=== PATIENT | female | born 1990 | race Hispanic/Latino ===

== ENCOUNTER 2016-10-12 17:14 | Emergency (ER) | payer OTHER ==
[2016-10-12 17:44] VITALS: BP 126/87; PULSE 84; RESP 18; TEMP 98; O2SAT 99
[2016-10-12 17:59] VITALS: BMI 22.3
[2016-10-12] MEDS ORDERED: Tmp-Smz 800 mg-160 mg DS Tab PO STA (17:59)
--- NOTE | 2016-10-12 17:59 | ED PDOC ---
HPI: Female Pain Time Seen by Provider: 10/12/16 17:49 Chief Complaint (Nursing): Female Genitourinary Chief Complaint (Provider): Hematuria History Per: Patient History/Exam Limitations: no limitations Onset/Duration Of Symptoms: Hrs (this morning), Worse Since (onset) Current Symptoms Are (Timing): Still Present Associated Symptoms: denies: Fever, Nausea, Vomiting Additional Complaint(s): Rina Randall is a 26 year old female, with no pertinent past medical history, who presents to the ED on 10/12/16 for the evaluation of hematuria that she had begun to experience as of this morning; reportedly worse since onset. Some associated burning dysuria, abdominal pain and urinary frequency also reported, though she denies fever, back/flank pain, nausea or vomiting. PMD: none Past Medical History Reviewed: Historical Data, Nursing Documentation, Vital Signs Vital Signs: Last Vital Signs Temp 98 F 10/12/16 17:28 Pulse 84 10/12/16 17:28 Resp 18 10/12/16 17:28 BP 126/87 10/12/16 17:28 Pulse Ox 99 10/12/16 17:28 - Medical History PMH: No Chronic Diseases - Surgical History Surgical History: No Surg Hx - Family History Family History: States: Unknown Family Hx - Home Medications Home Medications: Ambulatory Orders Medication Instructions Recorded Phenazopyridine HCl [Pyridium] 100 mg PO TID #6 tab 10/12/16 Sulfamethoxazole/Trimethoprim 1 tab PO BID 7 Days 10/12/16 [Bactrim DS 800 mg-160 mg] - Allergies Allergies/Adverse Reactions: Allergies Allergy/AdvReac Type Severity Reaction Status Date / Time No Known Allergies Allergy Verified 10/12/16 17:58 Review of Systems Constitutional: Negative for: Fever Gastrointestinal: Positive for: Abdominal Pain. Negative for: Nausea, Vomiting Genitourinary Female: Positive for: Dysuria (burning), Frequency, Hematuria Musculoskeletal: Negative for: Back Pain Physical Exam - Reviewed Nursing Documentation Reviewed: Yes Vital Signs Reviewed: Yes - Physical Exam Appears: Positive for: Non-toxic, No Acute Distress Gastrointestinal/Abdominal: Positive for: Normal Exam, Soft. Negative for: Tenderness Back: Positive for: Normal Inspection. Negative for: L CVA Tenderness, R CVA Tenderness Neurologic/Psych: Positive for: Alert, Oriented - ECG O2 Sat by Pulse Oximetry: 99 (RA) Pulse Ox Interpretation: Normal Medical Decision Making Medical Decision Makin:49 Initial Impression: UTI Initial Plan: * Upreg * Udip * Bactrim 1 tab PO * Pyridium 100mg PO * Reevaluation Dip (+) blood and leuks, (-) nites. Urine culture sent Signs and symptoms of pyelonephritis discussed at length. Advised to return to ED if at anytime condition worsens Scribe Attestation: Documented by Sharon York, acting as a scribe for Christina Holley PA-C. Provider Scribe Attestation: All medical record entries made by the Scribe were at my direction and personally dictated by me. I have reviewed the chart and agree that the record accurately reflects my personal performance of the history, physical exam, medical decision making, and the department course for this patient. I have also personally directed, reviewed, and agree with the discharge instructions and disposition. Disposition - Clinical Impression Clinical Impression: Urinary tract infection, Cystitis - Patient ED Disposition Is Patient to be Admitted: No - Disposition Disposition: Routine/Home Disposition Time: 19:01 Condition: STABLE Prescriptions: Sulfamethoxazole/Trimethoprim [Bactrim DS 800 mg-160 mg] 1 tab PO BID 7 Days Phenazopyridine HCl [Pyridium] 100 mg PO TID #6 tab Instructions: Urinary Tract Infection in Women (ED) - POA Present On Arrival: None
[2016-10-12] MEDS ORDERED: Tmp-Smz 800 mg-160 mg DS Tab ONE (18:31)
== END 2016-10-12 19:26 | disposition home or self-care (01) ==
LOC: H.ER 17:14
DX: N30.90 Cystitis, unspecified without hematuria (principal); N39.0 Urinary tract infection, site not specified

== ENCOUNTER 2016-11-07 04:32 | Observation (INO) | payer OTHER ==
[2016-11-07 04:33] VITALS: BMI 22.3
[2016-11-07] MEDS ORDERED: Sodium Chloride 0.9% 1,000 ML IV STA (05:18)
[2016-11-07 05:47] LABS: RBC URINE 4 /hpf (0-3); URINE BILIRUBIN NEGATIVE (NEGATIVE); URINE BLOOD NEGATIVE (NEGATIVE); URINE COLOR YELLOW (YELLOW); URINE GLUCOSE (UA) NEG (Normal); URINE KETONE NEGATIVE (NEGATIVE); URINE LEUKOCYTE ESTERASE NEG Leu/uL (Negative); URINE PROTEIN NEGATIVE (NEGATIVE); URINE UROBILINOGEN 0.2-1.0 mg/dL (0.2-1.0); WBC URINE 1 /hpf (0-5)
[2016-11-07 06:06] LABS: BASO # 0.1 K/uL (0.0-0.2); BASO % 1.4 % (0.0-2.0); EOS # 0.4 K/uL (0.0-0.7); EOS % 6.1 % (0.0-4.0); HEMATOCRIT 38.9 % (34.0-47.0); LYMPH # 2.2 K/uL (1.0-4.3); LYMPH % 31.5 % (20.0-40.0); MEAN CELL VOLUME 89.7 fl (81.0-99.0); MEAN CORPUSCULAR HEMOGLOBIN 30.5 pg (27.0-31.0); MEAN PLATELET VOLUME 8.6 fl (7.2-11.7); MONO # 0.4 K/uL (0.0-0.8); MONO % 6.4 % (0.0-10.0); NEUT # 3.8 K/uL (1.8-7.0); NEUT % 54.6 % (50.0-75.0); NRBC % 0.1 % (0.0-0.0); RED CELL DISTRIBUTION WIDTH 12.5 % (11.5-14.5)
[2016-11-07 06:12] LABS: ALB/GLOB RATIO 1.4 (1.0-2.1); ALKALINE PHOSPHATASE 67 U/L (38-126); ALT/SGPT 23 U/L (9-52); AST/SGOT 30 U/L (14-36); BILIRUBIN,TOTAL 0.4 mg/dl (0.2-1.3); BLOOD UREA NITROGEN 12 mg/dl (7-17); CALCIUM 9.2 mg/dL (8.4-10.2); CARBON DIOXIDE 25 mmol/L (22-30); CHLORIDE 104 mmol/L (98-107); GFR AFRICAN-AMERICAN > 60; GLUCOSE,RANDOM 99 mg/dL (65-105); POTASSIUM 3.9 MMOL/L (3.6-5.0); SODIUM 140 mmol/l (132-148); TOTAL PROTEIN 7.6 G/DL (6.3-8.2)
--- NOTE | 2016-11-07 06:41 | ED PDOC ---
HPI: Abdomen Time Seen by Provider: 11/07/16 05:17 Chief Complaint (Nursing): Back Pain Past Medical History Vital Signs: Last Vital Signs Temp 98.4 F 11/07/16 04:47 Pulse 76 11/07/16 04:47 Resp 18 11/07/16 04:47 BP 122/67 11/07/16 04:47 Pulse Ox 99 11/07/16 04:47 - Family History Family History: States: Unknown Family Hx - Home Medications Home Medications: Ambulatory Orders Medication Instructions Recorded Phenazopyridine HCl [Pyridium] 100 mg PO TID #6 tab 10/12/16 Sulfamethoxazole/Trimethoprim 1 tab PO BID 7 Days 10/12/16 [Bactrim DS 800 mg-160 mg] - Allergies Allergies/Adverse Reactions: Allergies Allergy/AdvReac Type Severity Reaction Status Date / Time No Known Allergies Allergy Verified 11/07/16 04:47 - Laboratory Results Result Diagrams: 11/07/16 05:50 11/07/16 05:50 - ECG O2 Sat by Pulse Oximetry: 99
--- NOTE | 2016-11-07 06:41 | ED PDOC ---
HPI: Abdomen Chief Complaint (Provider): Back pain History Per: Patient History/Exam Limitations: no limitations Onset/Duration Of Symptoms: Hrs Current Symptoms Are (Timing): Still Present Pain Scale Rating Of: 6 Quality Of Discomfort: Sharp Associated Symptoms: denies: Nausea, Vomiting <Markus Coles - Last Filed: 11/07/16 06:26> <Sylvester Horner Jr. - Last Filed: 11/07/16 13:55> Time Seen by Provider: 11/07/16 05:17 Chief Complaint (Nursing): Back Pain Additional Complaint(s): Rina Randall is a 26 year old female with no past medical history who presents to the ED wit a chief complaint of abdominal pain along with diarrhea onset x4days. Patient reports right flank pain that radiated to the abdomen with associated diarrhea initially that's been resolved. Patient rates her pain 6 out of 10 and states its a sharp feeling; she was seen 2 weeks ago and was diagnosed with UTI. (Markus Coles) Past Medical History Reviewed: Historical Data, Nursing Documentation, Vital Signs - Medical History PMH: No Chronic Diseases - Surgical History Surgical History: No Surg Hx - Family History Family History: States: Unknown Family Hx <Markus Coles - Last Filed: 11/07/16 06:26> <Sylvester Horner Jr. - Last Filed: 11/07/16 13:55> Vital Signs: Last Vital Signs Temp 98.1 F 11/07/16 08:00 Pulse 74 11/07/16 08:00 Resp 16 11/07/16 08:00 BP 106/42 L 11/07/16 08:00 Pulse Ox 100 11/07/16 08:00 - Home Medications Home Medications: Ambulatory Orders Medication Instructions Recorded Phenazopyridine HCl [Pyridium] 100 mg PO TID #6 tab 10/12/16 Sulfamethoxazole/Trimethoprim 1 tab PO BID 7 Days 10/12/16 [Bactrim DS 800 mg-160 mg] - Allergies Allergies/Adverse Reactions: Allergies Allergy/AdvReac Type Severity Reaction Status Date / Time No Known Allergies Allergy Verified 11/07/16 04:47 Review of Systems ROS Statement: Except As Marked, All Systems Reviewed And Found Negative Gastrointestinal: Positive for: Abdominal Pain, Diarrhea. Negative for: Nausea , Vomiting <Markus Coles - Last Filed: 11/07/16 06:26> Physical Exam - Reviewed Nursing Documentation Reviewed: Yes Vital Signs Reviewed: Yes - Physical Exam Appears: Positive for: Well, Non-toxic, No Acute Distress Head Exam: Positive for: ATRAUMATIC, NORMAL INSPECTION, NORMOCEPHALIC Skin: Positive for: Normal Color, Warm, Dry Eye Exam: Positive for: Normal appearance, EOMI, PERRL ENT: Positive for: Normal ENT Inspection Neck: Positive for: Normal, Painless ROM, Supple Cardiovascular/Chest: Positive for: Regular Rate, Rhythm. Negative for: Murmur , Tachycardia Respiratory: Positive for: Normal Breath Sounds. Negative for: Wheezing, Respiratory Distress Gastrointestinal/Abdominal: Positive for: Normal Exam, Soft. Negative for: Tenderness Pelvic Exam: Positive for: External Exam Normal Back: Positive for: Normal Inspection Rectal: Positive for: Deferred Extremity: Positive for: Normal ROM Lymphatic: Positive for: Deferred Neurologic/Psych: Positive for: Alert, Oriented <KennedytedMarkus Tejas - Last Filed: 11/07/16 06:26> - Laboratory Results Result Diagrams: 11/07/16 05:50 11/07/16 05:50 - ECG O2 Sat by Pulse Oximetry: 99 (RA) Pulse Ox Interpretation: Normal <JoseattilaRenettaMarkus Lazaro - Last Filed: 11/07/16 06:26> - Laboratory Results Result Diagrams: 11/07/16 05:50 11/07/16 05:50 <Sylvester Horner Jr. - Last Filed: 11/07/16 13:55> Medical Decision Making <SharynRenettaMarkusstella Lazaro - Last Filed: 11/07/16 06:26> <Sylvester Horner Jr. - Last Filed: 11/07/16 13:55> Medical Decision Makin: Initial Impression: Abdominal flank pain in setting of UTI Initial Plan: * ABD Pelvis * CMP * Urine * ED Urine Dipstick * CBC * Sodium chloride 1000 ml * Ketorolac 10mg * Ondansetron 4mg * Heplock insertion * Urinalysis * Re-Eval Patient declines analgesia. Patient signed out to Dr. Horner at 0700: Scribe~Attestation: Documented by Alicia Palomares acting as a~scribe~for Markus Coles MD. ~ Provider~SameeraAttestation: All medical record entries made by the~Sameerawere at my direction and personally dictated by me. I have reviewed the chart and agree that the record accurately reflects my personal performance of the history, physical exam, medical decision making, and the department course for this patient. I have also personally directed, reviewed, and agree with the discharge instructions and disposition. 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 CT shows significant constipation. No RLQ tenderness on exam. Will d/c home with Rx for magnesium citrate. I instructed pt that if her symptoms do not improve, to return to ER. (Sylvester Horner Jr.) ED OBSERVATION <Markus Coles - Last Filed: 11/07/16 06:26> Date of observation admission: 11/07/16 Time of observation admission: 10:44 <Sylvester Horner Jr. - Last Filed: 11/07/16 13:55> - Observation admission statement Patient is being placed in observation because:: Patient is still symptomatic. Will need further workup and testing. (Sylvester Horner Jr.) - Goals of Observation Goals of observation are:: Improvement of symptoms. (Sylvester Horner Jr.) Disposition <Markus Coles - Last Filed: 11/07/16 06:26> - Patient ED Disposition Is Patient to be Admitted: No - Disposition Disposition: Routine/Home Disposition Time: 13:55 - POA Present On Arrival: None <Sylvester Horner Jr. - Last Filed: 11/07/16 13:55> - Clinical Impression Clinical Impression: Constipation - Disposition Condition: FAIR
[2016-11-07 08:01] VITALS: PULSE 74; RESP 16; TEMP 98.1; O2SAT 100
--- NOTE | 2016-11-07 10:33 | CT ---
PROCEDURE: CT scan abdomen pelvis dated 11/07/2016. HISTORY: renal colic COMPARISON: None. TECHNIQUE: Contiguous axial images of the abdomen and pelvis. Oral contrast was administered. No IV contrast given. Coronal and Sagittal reformats generated. Radiation dose: Total exam DLP = 434.76 mGy-cm. This CT exam was performed using one or more of the following dose reduction techniques: Automated exposure control, adjustment of the mA and/or kV according to patient size, and/or use of iterative reconstruction technique. FINDINGS: LOWER THORAX: No focal consolidation seen lung bases. Tiny linear focus of atelectasis or scarring left CP angle region. No basilar pneumothorax. LIVER: Liver exhibits normal size measuring approximately 15 cm in CC dimension. No obvious hepatic mass or collection seen on this noncontrast study. GALLBLADDER AND BILE DUCTS: Gallbladder is appears incompletely distended. No evidence of intraluminal gallbladder calculi. PANCREAS: The visualized portions of the pancreas appear grossly unremarkable so far as can be seen. Note that evaluation slightly limited due to a relative paucity of intra peritoneal as well as retroperitoneal fat and lack of oral and intravenous contrast material. SPLEEN: Spleen exhibits normal size and attenuation. No splenic mass, collection or calcification ADRENALS: No adrenal lesions. KIDNEYS AND URETERS: Kidneys exhibit symmetric nephrograms. No evidence of nephrolithiasis or hydronephrosis. BLADDER: Urinary bladder is incompletely distended which may account for slight thick-walled appearance. Possibility of a cystitis not excluded. REPRODUCTIVE: Uterus and adnexal structures unremarkable. APPENDIX: The appendix is not seen with any certainty. No definitive inflammatory changes seen within the right lower quadrant of the abdomen however clinical correlation with physical exam and laboratory values recommended. BOWEL: Evaluation of the bowel is somewhat limited due to the lack of oral contrast material. The stomach is incompletely distended which presumably accounts for thick-walled appearance. Gastritis not excluded. Visualized loops of small bowel exhibit normal contour and caliber. No evidence of acute mechanical small bowel obstruction. Large amount of stool seen throughout the colon consistent with constipation. . PERITONEUM: Unremarkable. No fluid collection. No free air. LYMPH NODES: Unremarkable. No enlarged lymph nodes. VASCULATURE: Unremarkable. No aortic aneurysm. BONES: Osseous structures appear grossly intact. OTHER FINDINGS: None. IMPRESSION: Findings consistent with marked constipation. Appendix is not seen with any certainty on this exam on however no obvious inflammatory changes right lower quadrant of the abdomen. Clinical correlation with physical exam and laboratory values suggested the possibility of an acute appendicitis cannot be ruled out based on this study. No evidence of nephrolithiasis or hydronephrosis.
--- NOTE | 2016-11-07 13:32 | US ---
HISTORY: Right side pelvic pain; r/o ovarian cyst or torsion. COMPARISON: Comparison made with CT scan abdomen pelvis obtained earlier same day. TECHNIQUE: FINDINGS: UTERUS: Uterus is anteverted measuring approximately 8.0 x 3.3 x 4.7 cm. Cm. Normal in size and appearance. No uterine fibroids are identified. ENDOMETRIUM: Measures 1.0 0 cm mm in diameter. Unremarkable. CERVIX: Small nabothian cysts are present. RIGHT OVARY: Right ovary measures 5.1 x 2.0 x 4.0 cm. No evidence of solid or cystic mass. Right ovary exhibits arterial flow. LEFT OVARY: Left ovary measures 3.7 x 2.0 x 3.4 cm. No obvious solid or cystic mass. Left ovary exhibits arterial flow. FREE FLUID: Small amount of free fluid is present within the cul de sac. OTHER FINDINGS: None. IMPRESSION: Small amount of free fluid present within the cul de sac. No evidence of ovarian torsion. Small cervical nabothian cyst.
[2016-11-07 14:31] VITALS: BP 126/78
== END 2016-11-07 13:51 | disposition home or self-care (01) ==
LOC: H.ER 04:32 → H.EROBSV 10:43
PROVIDERS: ADMIT Emergency Medicine; ATTEND Emergency Medicine
DX: K59.00 Constipation, unspecified (principal); N39.0 Urinary tract infection, site not specified

== ENCOUNTER 2017-01-09 18:43 | Emergency (ER) | payer SELFPAY ==
[2017-01-09 18:43] VITALS: BMI 22.3
--- NOTE | 2017-01-09 20:05 | ED PDOC ---
HPI: Neurologic - General Time Seen by Provider: 01/09/17 19:09 Chief Complaint (Nursing): Headache Source: patient Exam Limitations: no limitations - History of Present Illness Timing/Duration: 24 hours Severity: mild Associated Symptoms: numbness in legs/feet, tingling in legs/feet. denies: denies symptoms, confusion, fatigue, fever/chills, insomnia, loss of consciousness, muscle spasms, nausea/vomiting, paresthesia, ringing in ears, seizures, sleepy, slurred speech, trouble walking, vision changes, weakness Allergies/Adverse Reactions: Allergies No Known Allergies Allergy (Verified 01/09/17 18:47) Home Medications: Ambulatory Orders Phenazopyridine HCl [Pyridium] 100 mg PO TID #6 tab 10/12/16 Sulfamethoxazole/Trimethoprim [Bactrim DS 800 mg-160 mg] 1 tab PO BID 7 Days Magnesium Citrate [Citrate of Mag] 300 ml PO ONCE #1 bottle 11/07/16 Additional Complaint(s): Pt arrives to ER for headache and left chest pain with left arm pain. Headache is mild started 2 days ago after she hit her head when she fell on the boat 2 days ago. She denies syncope or LOC. Her headache did not bother her so she did skydiving yesterday. After skidiving she developed left chest pain of burning character that radiated to left arm. She had left arm tingling and numbness since yesterday as well. Tingling is from the shoulder to her 2 fingers. She had left lower facial heaviness. She noticed left leg tingling in the foot as well. NO weakness. NO gait problems. NO slurred speech. Past Medical History Reviewed: Historical Data, Nursing Documentation, Vital Signs Vital Signs: Last Vital Signs Temp 98.6 F 01/09/17 18:47 Pulse 80 01/09/17 18:47 Resp 20 01/09/17 18:47 BP 137/97 H 01/09/17 18:47 Pulse Ox 98 01/09/17 18:47 - Medical History PMH: No Chronic Diseases - Surgical History Surgical History: No Surg Hx - Family History Family History: States: Unknown Family Hx - Social History Current smoker - smoking cessation education provided: No Ex-Smoker (has not smoked in the last 12 months): No Alcohol: None Drugs: Denies - Home Medications Home Medications: Ambulatory Orders Medication Instructions Recorded Phenazopyridine HCl [Pyridium] 100 mg PO TID #6 tab 10/12/16 Sulfamethoxazole/Trimethoprim 1 tab PO BID 7 Days 10/12/16 [Bactrim DS 800 mg-160 mg] Magnesium Citrate [Citrate of Mag] 300 ml PO ONCE #1 bottle 11/07/16 - Allergies Allergies/Adverse Reactions: Allergies Allergy/AdvReac Type Severity Reaction Status Date / Time No Known Allergies Allergy Verified 01/09/17 18:47 Review of Systems ROS Statement: Except As Marked, All Systems Reviewed And Found Negative Constitutional: Negative for: Fever Cardiovascular: Positive for: Chest Pain Musculoskeletal: Positive for: Arm Pain. Negative for: Neck Pain Neurological: Positive for: Numbness Physical Exam - Reviewed Nursing Documentation Reviewed: Yes Vital Signs Reviewed: Yes - Physical Exam Appears: Positive for: Non-toxic, No Acute Distress Head Exam: Positive for: ATRAUMATIC Skin: Positive for: Normal Color, Warm, Dry Eye Exam: Positive for: EOMI, PERRL Neck: Positive for: Painless ROM, Supple Cardiovascular/Chest: Positive for: Regular Rate, Rhythm. Negative for: Tachycardia Respiratory: Positive for: Normal Breath Sounds. Negative for: Rales, Rhonchi, Wheezing Gastrointestinal/Abdominal: Positive for: Soft. Negative for: Tenderness Extremity: Positive for: Normal ROM Neurologic/Psych: Positive for: Alert, senior training specialist II-XII (intact), Oriented, Gait ( steady). Negative for: Motor/Sensory Deficits, Aphasia, Facial Droop - Laboratory Results Result Diagrams: 01/09/17 19:33 01/09/17 19:33 - ECG ECG: Positive for: Interpreted By Me, Viewed By Me ECG Rhythm: Positive for: Normal QRS, Normal ST Segment, Sinus Rhythm. Negative for: ST/T Changes Rate: 76 O2 Sat by Pulse Oximetry: 98 Medical Decision Making Medical Decision Making: Headache with head injury. Paresthesias. Chest pain Diff include Head injury with resulting ICH and neurologic symptoms. Consider cervical radiculopathy. R/o ACS, pneumothorax, and less likely PE. PERC negative. Wells score is 0. Plan Labs CT head CXR EKG UDS reassess CT head: no acute findings [id number] Morrow who recommends CT angio head and neck. 2.[address] angio negative. Discussed with Dr Morrow who recommends outpatient follow up. Disposition - Clinical Impression Clinical Impression: Arm pain, left, Head injury - Patient ED Disposition Is Patient to be Admitted: No Doctor Will See Patient In The: Office Counseled Patient/Family Regarding: Studies Performed, Diagnosis, Need For Followup - Disposition Referrals: [facility] [Outside] Elliott Velazco MD [Staff Provider] - Disposition: Routine/Home Disposition Time: 02:21 Condition: GOOD Additional Instructions: Take advil for pain. Follow up with neurologist in 2-3 days. Instructions: Head Injury (ED), Cervical Radiculopathy (ED) Forms: [facility] ED School/Work Excuse Wells Criteria for PE - Wells Criteria for Pulmonary Embolism Clinical Signs and Symptoms of DVT: No P.E is #1 Diagnosis, or Equally Likely: No Heart Rate >100: No Immobilization at least 3 days;Surgery previous 4 weeks: No Previous, objectively diagnosed PE or DVT: No Hemoptysis: No Malignancy w/treatment within 6 months, or palliative: No Total Score: 0 ALEX Risk Score for UA/NSTEMI - ALEX Risk Score Age > 64: NO 3 or more CAD Risk Factors: NO Known CAD (Stenosis greater than 50%): NO Aspirin use in past 7 days: NO Severe Angina: NO EKG ST changes greater than 0.5mm: NO Positive Cardiac Marker: NO ALEX Score: 0 % risk at 14 days of: all cause mortality, new or recurrent NE, or severe recurrent ischemia requiring urgen revascularization: 5%
[2017-01-09 22:07] LABS: BASO # 0.1 K/uL (0.0-0.2); BASO % 0.8 % (0.0-2.0); EOS # 0.1 K/uL (0.0-0.7); EOS % 0.8 % (0.0-4.0); LYMPH # 2.1 K/uL (1.0-4.3); LYMPH % 20.8 % (20.0-40.0); MEAN CELL VOLUME 88.3 fl (81.0-99.0); MEAN CORPUSCULAR HEMOGLOBIN 29.7 pg (27.0-31.0); MEAN CORPUSCULAR HGB CONC 33.7 g/dL (33.0-37.0); MEAN PLATELET VOLUME 8.7 fl (7.2-11.7); MONO # 0.5 K/uL (0.0-0.8); MONO % 4.7 % (0.0-10.0); NEUT # 7.4 K/uL (1.8-7.0); NEUT % 72.9 % (50.0-75.0); NRBC % 0.1 % (0.0-0.0); RBC 4.72 Mil/uL (3.80-5.20); RED CELL DISTRIBUTION WIDTH 12.8 % (11.5-14.5); WHITE BLOOD COUNT 10.1 K/uL (4.8-10.8)
[2017-01-09 22:15] LABS: BLOOD UREA NITROGEN 13 mg/dl (7-17); CALCIUM 9.6 mg/dL (8.4-10.2); GFR AFRICAN-AMERICAN > 60; GFR NON-AFRICAN AMERICAN > 60
[2017-01-09 22:28] LABS: BARBITURATES, UR NEGATIVE (NEGATIVE); BENZODIAZEPINES, UR NEGATIVE (NEGATIVE); OPIATES, UR NEGATIVE (NEGATIVE); PHENCYCLIDINE, UR NEGATIVE (NEGATIVE)
[2017-01-09 22:30] LABS: INR 1.1 (0.9-1.2); PARTIAL THROMBOPLASTIN TIME 35.5 Seconds (25.6-37.1)
[2017-01-10] MEDS ORDERED: Iodixanol 320 MG/ML 100 ML BOTTLE IV ONE (00:10)
[2017-01-10] MEDS ORDERED: Sodium Chloride 0.9% 50 ML IV ONE (00:10)
--- NOTE | 2017-01-10 00:41 | CT ---
EXAM: CT Cervical Spine Without Intravenous Contrast CLINICAL HISTORY: 26 years old, female; Pain; Neck pain; Additional info: Neck pain head injury TECHNIQUE: Axial computed tomography images of the cervical spine without intravenous contrast. This CT exam was performed using one or more of the following dose reduction techniques: automated exposure control, adjustment of the mA and/or kV according to patient size, and/or use of iterative reconstruction technique. Coronal and sagittal reformatted images were created and reviewed. COMPARISON: No relevant prior studies available. FINDINGS: Vertebrae: No acute fracture. Straightening of cervical spine. Discs/spinal canal/neural foramina: No significant spinal canal stenosis. Soft tissues: Unremarkable. Lung apices: Unremarkable as visualized. IMPRESSION: 1. No fracture. 2. Incidental/non-acute findings are described above.
[2017-01-10 02:45] VITALS: BP 115/76; PULSE 79; RESP 16; TEMP 97.7; O2SAT 97
--- NOTE | 2017-01-10 03:01 | RAD ---
HISTORY: chest pain COMPARISON: No prior. TECHNIQUE: Chest PA and lateral FINDINGS: LUNGS: No active pulmonary disease. PLEURA: No significant pleural effusion identified. No pneumothorax apparent. CARDIOVASCULAR: Normal. OSSEOUS STRUCTURES: No significant abnormalities. VISUALIZED UPPER ABDOMEN: Normal. OTHER FINDINGS: None. IMPRESSION: No active disease.
--- NOTE | 2017-01-10 03:20 | CT ---
PROCEDURE: CT Angiography of the neck and Brain. HISTORY: head injury neck pain chest pain arm numbness COMPARISON: Comparison is made to the previous noncontrast CT of the head dated 01/09/2017 TECHNIQUE: CT angiography of the neck and intracranial arteries was performed. Coronal and sagittal maximum intensity projection reformated images were generated. This CT exam was performed using one or more of the following dose reduction techniques: Automated exposure control, adjustment of the mA and/or kV according to patient size, and/or use of iterative reconstruction technique. FINDINGS: CT angiogram of the neck: The visualized portion of the aortic arch is normal in caliber and shape. Right brachiocephalic left common carotid and left subclavian arteries are normal in caliber. The common carotid arteries are normal in caliber and shape without evidence of stenosis or dissection. The carotid bifurcation are also unremarkable. The visualized portion of the mid and distal internal carotid arteries at the neck are also normal in caliber and shape. The vertebral arteries are symmetrical in size and shape. No CTA evidence of dissection or focal stenosis in the carotid and vertebral arteries at the neck. INTERNAL CEREBRAL ARTERIES: Unremarkable. The skull base, petrous, cavernous and supraclinoid segments are bilaterally widely patient. ANTERIOR CEREBRAL ARTERIES: Unremarkable. A1 and A2 segments are widely patent. Smaller distal branches unremarkable, as visualized. MIDDLE CEREBRAL ARTERIES: Unremarkable. M1 and M2 segments are widely patent. Perisylvian branches grossly symmetric. POSTERIOR CIRCULATION: Basilar Artery: Unremarkable. Distal Vertebral Arteries: Unremarkable. Posterior Cerebral Arteries: Unremarkable. Posterior Inferior Cerebellar Arteries: Unremarkable. ANEURYSM/ VASCULAR MALFORMATIONS: None. OTHER FINDINGS: None. IMPRESSION: Unremarkable CT Angiography of the neck and Brain.
--- NOTE | 2017-01-10 03:41 | CT ---
PROCEDURE: CT HEAD WITHOUT CONTRAST. HISTORY: chest pain COMPARISON: None available. TECHNIQUE: Axial computed tomography images were obtained through the head/brain without intravenous contrast. Radiation dose: Total exam DLP = 846.61 mGy-cm. This CT exam was performed using one or more of the following dose reduction techniques: Automated exposure control, adjustment of the mA and/or kV according to patient size, and/or use of iterative reconstruction technique. FINDINGS: HEMORRHAGE: No intracranial hemorrhage. BRAIN: No mass effect or edema. No atrophy or chronic microvascular ischemic changes. VENTRICLES: Unremarkable. No hydrocephalus. CALVARIUM: Unremarkable. PARANASAL SINUSES: Unremarkable as visualized. No significant inflammatory changes. MASTOID AIR CELLS: Unremarkable as visualized. No inflammatory changes. OTHER FINDINGS: None. IMPRESSION: No evidence of acute intracranial hemorrhage intracranial collection mass effect or midline shift. Preliminary report was submitted by virtual Radiology.
--- NOTE | 2017-01-10 20:27 | CARD ---
APPROVED REPORT EKG Measurement Heart [id number] <Conclusion> Normal sinus rhythm Possible Left atrial enlargement Borderline ECG
== END 2017-01-10 02:44 | disposition home or self-care (01) ==
LOC: H.ER 18:43
DX: S09.90XA Unspecified injury of head, initial encounter (principal); M79.602 Pain in left arm; Z87.891 Personal history of nicotine dependence
CPT/HCPCS: 70450; 70496; 70498; 71020; 72125; 80048; 84484; 85025; 85610; 85730; 93005; 99285; G0480; Q9967

== ENCOUNTER 2017-02-03 00:07 | Emergency (ER) | payer OTHER ==
[2017-02-03 00:07] VITALS: BMI 22.3
[2017-02-03 00:32] VITALS: BP 116/82; PULSE 82; RESP 16; TEMP 97.8; O2SAT 99
--- NOTE | 2017-02-03 00:56 | ED PDOC ---
HPI: Headache Time Seen by Provider: 02/03/17 00:34 Chief Complaint (Nursing): Headache Chief Complaint (Provider): Headache History Per: Patient History/Exam Limitations: no limitations Onset/Duration Of Symptoms: Days (x 5) Current Symptoms Are (Timing): Still Present Additional Complaint(s): Rina is a 26-year-old female who presents to the ED complaining of a constant headache radiating to neck and upper back pain, since . Patient seen here two weeks ago for head tingling after suffering head injury, had a normal CT. States she followed up in the clinic and now has an appointment with a neurologist on 02/16/17. Patient has taken 500 mg Tylenol twice (last taken 3-4 hours ago), and Motrin without relief. Also complaining of "burning" sensation in ears. PMD: Unknown Past Medical History Reviewed: Historical Data, Nursing Documentation, Vital Signs Vital Signs: Last Vital Signs Temp 97.8 F 02/03/17 00:30 Pulse 82 02/03/17 00:30 Resp 16 02/03/17 00:30 BP 116/82 02/03/17 00:30 Pulse Ox 99 02/03/17 00:30 - Medical History PMH: No Chronic Diseases - Surgical History Surgical History: No Surg Hx - Family History Family History: States: Unknown Family Hx - Home Medications Home Medications: Ambulatory Orders Medication Instructions Recorded Phenazopyridine HCl [Pyridium] 100 mg PO TID #6 tab 10/12/16 Sulfamethoxazole/Trimethoprim 1 tab PO BID 7 Days 10/12/16 [Bactrim DS 800 mg-160 mg] Magnesium Citrate [Citrate of Mag] 300 ml PO ONCE #1 bottle 11/07/16 Ibuprofen [Motrin] 600 mg PO Q6H PRN #20 tab 02/03/17 - Allergies Allergies/Adverse Reactions: Allergies Allergy/AdvReac Type Severity Reaction Status Date / Time No Known Allergies Allergy Verified 01/09/17 18:47 Review of Systems ROS Statement: Except As Marked, All Systems Reviewed And Found Negative ENT: Positive for: Other ("burning" in ears) Musculoskeletal: Positive for: Back Pain (headache radiates down to neck and upper back) Neurological: Positive for: Headache (constant ) Physical Exam - Reviewed Nursing Documentation Reviewed: Yes Vital Signs Reviewed: Yes - Physical Exam Appears: Positive for: Non-toxic, No Acute Distress Head Exam: Positive for: ATRAUMATIC, NORMAL INSPECTION, NORMOCEPHALIC Skin: Positive for: Normal Color, Warm, Dry Eye Exam: Positive for: EOMI, Normal appearance, PERRL ENT: Positive for: Normal ENT Inspection Neck: Positive for: Normal, Painless ROM, Supple Cardiovascular/Chest: Positive for: Regular Rate, Rhythm. Negative for: Murmur Respiratory: Positive for: Normal Breath Sounds. Negative for: Accessory Muscle Use, Respiratory Distress Gastrointestinal/Abdominal: Positive for: Normal Exam, Soft. Negative for: Tenderness Back: Positive for: Normal Inspection. Negative for: L CVA Tenderness, R CVA Tenderness, Vertebral Tenderness Extremity: Positive for: Normal ROM, Capillary Refill (< 2 sec). Negative for: Pedal Edema, Deformity Neurologic/Psych: Positive for: Alert, senior linux administrator II-XII (intact), Oriented. Negative for: Motor/Sensory Deficits - Laboratory Results Result Diagrams: 02/03/17 01:45 02/03/17 01:45 - ECG O2 Sat by Pulse Oximetry: 99 (RA) Pulse Ox Interpretation: Normal Medical Decision Making Medical Decision Making: Time: 00:50 Initial Impression: Headache Initial Plan: --Labs --Given Toradol 30 mg IV --Discussed importance of keeping Neurology appointment on the Time: 03:16 Clinical Impression: Headache Upon provider evaluation patient is medically stable, and requires no further treatment in the ED at this time. Patient will be discharged with Rx for Motrin 600 mg for pain. Counseling was provided and all questions were answered regarding diagnosis and need for follow up with Neurology. There is agreement to discharge plan. Return if symptoms persist or worsen. Scribe Attestation: Documented by Bianka So, acting as a scribe for Rupesh Fischer MD Provider Scribe Attestation: All medical record entries made by the Scribe were at my direction and personally dictated by me. I have reviewed the chart and agree that the record accurately reflects my personal performance of the history, physical exam, medical decision making, and the department course for this patient. I have also personally directed, reviewed, and agree with the discharge instructions and disposition. Disposition - Clinical Impression Clinical Impression: Headache - Patient ED Disposition Is Patient to be Admitted: No Doctor Will See Patient In The: Office Counseled Patient/Family Regarding: Diagnosis, Need For Followup, Rx Given - Disposition Referrals: Elliott Velazco MD [Staff Provider] - Disposition: Routine/Home Disposition Time: 03:16 Condition: IMPROVED Additional Instructions: follow up with neurology as instructed return to the ED with any worsening or concerning symptoms take motrin as needed for pain Prescriptions: Ibuprofen [Motrin] 600 mg PO Q6H PRN #20 tab PRN Reason: Pain, Moderate (4-7) Instructions: Ibuprofen (By mouth) Forms: [facility] (Vietnamese), [facility] ED School/Work Excuse
[2017-02-03 01:48] LABS: BASO # 0.1 K/uL (0.0-0.2); BASO % 0.8 % (0.0-2.0); EOS # 0.2 K/uL (0.0-0.7); EOS % 2.2 % (0.0-4.0); HEMOGLOBIN 13.2 g/dL (12.0-16.0); LYMPH % 22.7 % (20.0-40.0); MEAN CELL VOLUME 88.7 fl (81.0-99.0); MEAN CORPUSCULAR HEMOGLOBIN 29.5 pg (27.0-31.0); MEAN CORPUSCULAR HGB CONC 33.3 g/dL (33.0-37.0); MEAN PLATELET VOLUME 8.8 fl (7.2-11.7); MONO # 0.6 K/uL (0.0-0.8); MONO % 6.4 % (0.0-10.0); NEUT # 6.1 K/uL (1.8-7.0); NEUT % 67.9 % (50.0-75.0); RBC 4.47 Mil/uL (3.80-5.20); RED CELL DISTRIBUTION WIDTH 13.4 % (11.5-14.5)
[2017-02-03 02:02] LABS: ALB/GLOB RATIO 1.4 (1.0-2.1); ALBUMIN 4.3 g/dL (3.5-5.0); ALT/SGPT 33 U/L (9-52); AST/SGOT 23 U/L (14-36); BLOOD UREA NITROGEN 20 mg/dl (7-17); CALCIUM 9.6 mg/dL (8.4-10.2); GFR AFRICAN-AMERICAN > 60; GFR NON-AFRICAN AMERICAN > 60
== END 2017-02-03 03:29 | disposition home or self-care (01) ==
LOC: H.ER 00:07
DX: R51 Headache (principal); S09.90XD Unspecified injury of head, subsequent encounter

== ENCOUNTER 2017-03-22 16:04 | Observation (INO) | payer OTHER ==
[2017-03-22 16:04] VITALS: BMI 22.3
[2017-03-22 16:08] VITALS: BP 134/83; PULSE 79; RESP 18; TEMP 98.2; O2SAT 100
--- NOTE | 2017-03-22 16:22 | ED PDOC ---
HPI: Abdomen Time Seen by Provider: 03/22/17 16:10 Chief Complaint (Nursing): Abdominal Pain Chief Complaint (Provider): Abdominal Pain History Per: Patient History/Exam Limitations: no limitations Onset/Duration Of Symptoms: Days (x6) Current Symptoms Are (Timing): Still Present Location Of Pain/Discomfort: RLQ Additional Complaint(s): Rina Randall is a 26 year old female that presents to the ED with a chief complaint of right-sided abdominal pain that radiates to her right lower back that she has been experiencing for the past six days. Patient reports that the pain began spontaneously and has slowly worsened since onset, and feels sharp, comparable to "grinding rocks." She states that she has vomited once, but denies nausea or fever. Of Note: Patient has had a UTI in the past and denies experiencing similar symptoms. Patient is also sexually active and has a mild concern for a possible STD. Past Medical History Reviewed: Historical Data, Nursing Documentation, Vital Signs Vital Signs: Last Vital Signs Temp 98.2 F 03/22/17 16:05 Pulse 79 03/22/17 16:05 Resp 18 03/22/17 16:05 BP 134/83 03/22/17 16:05 Pulse Ox 100 03/22/17 18:44 - Family History Family History: States: Unknown Family Hx - Home Medications Home Medications: Ambulatory Orders Medication Instructions Recorded Phenazopyridine HCl [Pyridium] 100 mg PO TID #6 tab 10/12/16 Sulfamethoxazole/Trimethoprim 1 tab PO BID 7 Days tab 10/12/16 [Bactrim DS 800 mg-160 mg] Magnesium Citrate [Citrate of Mag] 300 ml PO ONCE #1 bottle 11/07/16 Ibuprofen [Motrin] 600 mg PO Q6H PRN #20 tab 02/03/17 Ibuprofen [Motrin] 600 mg PO Q8 PRN #21 tab 03/22/17 - Allergies Allergies/Adverse Reactions: Allergies Allergy/AdvReac Type Severity Reaction Status Date / Time No Known Allergies Allergy Verified 01/09/17 18:47 Review of Systems Constitutional: Negative for: Fever Gastrointestinal: Positive for: Vomiting (x1 episode), Abdominal Pain (right- sided). Negative for: Nausea Musculoskeletal: Positive for: Back Pain (right-sided) Physical Exam - Reviewed Nursing Documentation Reviewed: Yes Vital Signs Reviewed: Yes - Physical Exam Appears: Positive for: Non-toxic, No Acute Distress Head Exam: Positive for: ATRAUMATIC, NORMOCEPHALIC Skin: Positive for: Normal Color, Warm Eye Exam: Positive for: Normal appearance, EOMI, PERRL Gastrointestinal/Abdominal: Positive for: Tenderness (TTP of RLQ). Negative for : Normal Exam Pelvic Exam: Positive for: Other (minimal right adnexal tenderness noted; no cmt ; small amt of vaginal discharge whitish.) Back: Positive for: Normal Inspection, Other (No reproducible back pain.). Negative for: L CVA Tenderness, R CVA Tenderness Neurologic/Psych: Positive for: Alert, Oriented. Negative for: Motor/Sensory Deficits - Laboratory Results Result Diagrams: 03/22/17 16:40 03/22/17 16:40 - ECG O2 Sat by Pulse Oximetry: 100 (RA) Pulse Ox Interpretation: Normal - Progress ED Course And Treament: US PELVIC: BILATERAL OVARIAN CYST US APPENDIX: UNABLE TO VISUALIZE CT ABD/PELVIS IMPRESSION: 1. Normal appendix. 2. A small amount of free fluid in the posterior cul-de-sac measures simple fluid attenuation but is slightly greater in volume than typically seen as physiologic fluid. The fluid is otherwise nonspecific. 3. Moderate gaseous distention of the colon. Thank you for allowing us to participate in the care of your patient. Dictated and Authenticated by: Sahara Hoffman MD 03/22/2017 10:29 PM Eastern Time ([place] & [place]) Medical Decision Making Medical Decision Making: Impression: RLQ Pain Plan: * US Abdomen, focus RLQ * US Transvaginal * CMP * CBC * Urine Preg * Urine Dip * Urinalysis * Urine Culture * Chlamydia/GC * Reevaluation * 18:42: Patient reevaluated and results discussed including US. She continues to complain of abdominal pain and we will obtain a CT Abdomen to rule out appendicitis. Scribe Attestation: Documented by Ivy Saeed and Deena Samayoa, acting as a scribe for Lane Babcock PA-C. Provider Scribe Attestation: All medical record entries made by the Scribe were at my direction and personally dictated by me. I have reviewed the chart and agree that the record accurately reflects my personal performance of the history, physical exam, medical decision making, and the department course for this patient. I have also personally directed, reviewed, and agree with the discharge instructions and disposition. ED OBSERVATION Date of observation admission: 03/22/17 Time of observation admission: 17:45 - Observation admission statement Patient is being placed in observation because:: Persistent RLQ pain Disposition - Clinical Impression Clinical Impression: Abdominal pain in female - Patient ED Disposition Is Patient to be Admitted: No - Disposition Disposition: Routine/Home Disposition Time: 23:06 Condition: FAIR
[2017-03-22 16:44] LABS: BASO # 0.1 K/uL (0.0-0.2); BASO % 0.7 % (0.0-2.0); EOS # 0.1 K/uL (0.0-0.7); EOS % 1.2 % (0.0-4.0); HEMATOCRIT 43.4 % (34.0-47.0); LYMPH # 1.7 K/uL (1.0-4.3); LYMPH % 21.3 % (20.0-40.0); MEAN CELL VOLUME 89.4 fl (81.0-99.0); MEAN CORPUSCULAR HEMOGLOBIN 29.6 pg (27.0-31.0); MEAN CORPUSCULAR HGB CONC 33.1 g/dL (33.0-37.0); MEAN PLATELET VOLUME 9.1 fl (7.2-11.7); MONO # 0.4 K/uL (0.0-0.8); MONO % 5.5 % (0.0-10.0); NEUT # 5.7 K/uL (1.8-7.0); NEUT % 71.3 % (50.0-75.0); RED CELL DISTRIBUTION WIDTH 13.3 % (11.5-14.5)
[2017-03-22 16:49] LABS: RBC URINE < 1 /hpf (0-3); URINE BILIRUBIN NEGATIVE (NEGATIVE); URINE BLOOD NEGATIVE (NEGATIVE); URINE COLOR STRAW (YELLOW); URINE GLUCOSE (UA) NEG (Normal); URINE KETONE NEGATIVE (NEGATIVE); URINE LEUKOCYTE ESTERASE NEG Leu/uL (Negative); URINE PROTEIN NEGATIVE (NEGATIVE); URINE UROBILINOGEN 0.2-1.0 mg/dL (0.2-1.0); WBC URINE < 1 /hpf (0-5)
[2017-03-22 16:54] LABS: ALB/GLOB RATIO 1.4 (1.0-2.1); ALKALINE PHOSPHATASE 59 U/L (38-126); ALT/SGPT 18 U/L (9-52); AST/SGOT 37 U/L (14-36); BILIRUBIN,TOTAL 1.3 mg/dl (0.2-1.3); BLOOD UREA NITROGEN 11 mg/dl (7-17); CALCIUM 9.7 mg/dL (8.4-10.2); CARBON DIOXIDE 23 mmol/L (22-30); CHLORIDE 104 mmol/L (98-107); GFR AFRICAN-AMERICAN > 60; GLUCOSE,RANDOM 97 mg/dL (65-105); POTASSIUM 4.6 MMOL/L (3.6-5.0); SODIUM 143 mmol/l (132-148); TOTAL PROTEIN 8.7 G/DL (6.3-8.2)
--- NOTE | 2017-03-22 17:21 | US ---
PROCEDURE: Abdomen ultrasound limited HISTORY: rlq evaluate appendix COMPARISON: None available. TECHNIQUE: Real-time hand-held transducer ultrasound examination of the right lower quadrant was performed. FINDINGS: Exam was limited to the right lower quadrant. Peristalsing bowel loops were noted. Appendix was not identified. No ascites or focal fluid collection was noted. IMPRESSION: Appendix not identified. This should not decrease the clinical significance of the patient's symptoms and does not exclude appendicitis. No fluid or ascites seen in the right lower abdomen.
--- NOTE | 2017-03-22 17:49 | US ---
HISTORY: rlq abd pain COMPARISON: None available. TECHNIQUE: Real-time transvaginal ultrasound examination of the pelvis was performed. FINDINGS: UTERUS: Measures 7.8 x 3.6 x 5.3 cm. Normal in size and appearance. No fibroid or other mass lesion seen. ENDOMETRIUM: Measures 11 mm in diameter. Unremarkable. CERVIX: No cervical abnormality identified. RIGHT OVARY: Measures 5 x 2 x 3.3 cm. No solid mass. Normal flow. A number of small follicles are seen in the right ovary. . LEFT OVARY: Measures 4.2 x 1.8 x 4.1 cm. No solid mass. Normal flow. A number of small follicles are seen in the left ovary. FREE FLUID: No significant free fluid noted. OTHER FINDINGS: Small nabothian cysts are incidentally noted. IMPRESSION: No evidence of adnexal mass. No evidence of ovarian torsion. A number of small bilateral ovarian follicles, an appearance which may suggest polycystic ovarian in the correct clinical setting.
[2017-03-22] MEDS ORDERED: Iohexol 240 (50 ml) PO STA (18:42)
[2017-03-22] MEDS ORDERED: Sodium Chloride 0.9% 1,000 ML IV STA (18:43)
[2017-03-22] MEDS ORDERED: Iohexol 240 (50 ml) ONE (18:48)
[2017-03-22] MEDS ORDERED: Iohexol 300 100 ML IJ ONE (21:09)
[2017-03-22] MEDS ORDERED: Sodium Chloride 0.9% 50 ML IV ONE (21:10)
--- NOTE | 2017-03-23 10:09 | CT ---
PROCEDURE: CT Abdomen and Pelvis with contrast HISTORY: Right lower quadrant pain COMPARISON: 11/07/2016. TECHNIQUE: CT scan of the abdomen and pelvis was performed after intravenous administration of contrast. Oral contrast was administered. Coronal and sagittal reformatted images were obtained. Radiation dose: Total exam DLP = 520.43 mGy-cm. This CT exam was performed using one or more of the following dose reduction techniques: Automated exposure control, adjustment of the mA and/or kV according to patient size, and/or use of iterative reconstruction technique. FINDINGS: LOWER THORAX: The lung bases are clear. LIVER: The liver is normal in size and there is homogeneous enhancement. No gross lesion or ductal dilatation. GALLBLADDER AND BILE DUCTS: There are no calcified gallstones. PANCREAS: The pancreas is normal in size and there is homogeneous enhancement. No gross lesion or ductal dilatation. SPLEEN: Spleen is normal in size without focal lesion. ADRENALS: Both adrenal glands are normal in size without discrete nodule. KIDNEYS AND URETERS: Both kidneys are normal in size and there is homogeneous enhancement without focal mass or hydronephrosis. VASCULATURE: No aortic aneurysm. BOWEL: The small bowel loops are normal in caliber. The colon is unremarkable. No bowel dilatation or obstruction. APPENDIX: Normal appendix. PERITONEUM: There is a small amount of free fluid in the pelvis. No free air. LYMPH NODES: No enlarged lymph nodes. BLADDER: Partially decompressed. REPRODUCTIVE: The uterus is normal in size. No adnexal masses. BONES: No acute fracture. Within normal limits for the patient's age. OTHER FINDINGS: None. IMPRESSION: No acute abdominal or pelvic abnormality. No CT evidence for acute appendicitis. A preliminary report was provided by [employer].
== END 2017-03-22 23:06 | disposition home or self-care (01) ==
LOC: H.ER 16:04 → H.EROBSV 17:45
PROVIDERS: ADMIT Emergency Medicine; ATTEND Emergency Medicine
DX: R10.31 Right lower quadrant pain (principal); Z87.440 Personal history of urinary (tract) infections; R11.10 Vomiting, unspecified
CPT/HCPCS: 74177; 76705; 76830; 80053; 81003; 85025; 87086; 87491; 87591; 96360; 96361; 99283; G0378; J7040; Q9966; Q9967